=== PATIENT | female | born 1995 | race Caucasian/White ===

== ENCOUNTER 2021-03-19 14:33 | Outpatient (CLI) | payer BC, SELFPAY ==
[2021-03-19 18:35] LABS: Hematocrit 41.4 % (37.0-47.0); Hemoglobin 13.7 g/dL (12.0-15.0); Mean Corpuscular HGB Conc 33.1 g/dl (32-36); Mean Corpuscular Hemoglobin 28.5 pg (26-34); Mean Corpuscular Volume 86.3 fl (80-100); Mean Platelet Volume 10.7 fl (7.4-10.4); Platelet Count Result 233 k/mm3 (150-375); White Blood Count 13.6 K/mm3 (4.5-10.0)
[2021-03-19 18:50] LABS: Alanine Aminotransferase 16 U/L (4-35); Albumin Level 3.9 g/dL (3.5-5.1); Alkaline Phosphatase 77 U/L (38-126); Anion Gap 14 mmol/L (8-16); Aspartate Amino Transferase 24 U/L (14-36); Bilirubin,Total 0.4 mg/dL (0.2-1.3); Blood Urea Nitrogen 11 mg/dL (7-17); Calcium 9.6 mg/dL (8.4-10.2); Carbon Dioxide 21 mmol/L (22-30); Chloride 103 mmol/L (98-107); Cholesterol 179 mg/dL (0-200); Estimated Glomerular Filt Rate > 60; Glucose 173 mg/dL (65-110); HDL Direct 56 mg/dL; Iron 61 ug/dL (37-170); Potassium 3.9 mmol/L (3.4-5.0); Sodium 138 mmol/L (137-145); Triglycerides 171 mg/dL (<150)
[2021-03-19 18:52] LABS: Hemoglobin A1C 6.2 % (<5.7)
[2021-03-19 18:59] LABS: Percent Iron Saturation 17 % (20-50)
[2021-03-19 19:01] LABS: LDL Cholesterol Direct 104 mg/dL
[2021-03-19 19:08] LABS: Vitamin D 25 Hydroxy 38.7 ng/mL
== END 2021-03-19 14:34 | disposition home or self-care (01) ==
PROVIDERS: PCP Family Medicine; Visit Provider Family Medicine
DX: R79.89 Other specified abnormal findings of blood chemistry (principal); E28.2 Polycystic ovarian syndrome; N32.81 Overactive bladder; R20.0 Anesthesia of skin; R20.2 Paresthesia of skin; R73.9 Hyperglycemia, unspecified
CPT/HCPCS: 36415; 80053; 80061; 82306; 83036; 83540; 83550; 85027

== ENCOUNTER 2021-05-27 08:23 | Emergency (ER) | payer BC, SELFPAY ==
[2021-05-27] VITALS (14 sets, daily range): BP systolic 129–146; BP diastolic 82–90; PULSE 106; RESP 15; TEMP 36.7; O2SAT 97–100
--- NOTE | ~2021-05-27 | CT_ITS ---
EXAMINATION: CT abdomen pelvis w con DATE: 05/27/2021 10:37 INDICATION: Right upper quadrant pain. Vaginal bleeding. TECHNIQUE: Computed tomography (CT) of the abdomen and pelvis was performed with 100 cc Omnipaque 350 intravenous contrast. The dose-length product was 1189.87 mGy-cm. Automated exposure control and ite rative reconstruction technique were employed. COMPARISON: None. FINDINGS: Lung bases are unremarkable. Heart size normal. No significant pleural or pericardial effus ion. No significant vascular abnormality. No lymphadenopathy. Fatty infiltration of the liver. Calcified granuloma of the spleen. The pancreas, adrenal glands and kidneys are unremarkable. Gallbladder is present. No acute osseous abnormality. No abnormal pelvic ma sses or fluid collections. There are are nonenlarged retroperitoneal lymph nodes, likely reactive. IMPRESSION: 1. No acute abdominal abnormality. 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
--- NOTE | ~2021-05-27 | US_ITS ---
EXAMINATION: US pelvic complete w TV DATE: 05/27/2021 11:55 INDICATION: Abnormal uterine bleeding Comparison:CT dated 05/27/2021 TECHNIQUE: Multiple transabdominal and endovaginal sonographic images of the pelvis performed. FINDINGS: The uterus measures 5.9 x 2.6 x 3.3 cm. The endometrial complex measures 4.5 mm. The right ovary measures 3.2 x 2.9 x 2.1 cm and the left ovary measures 2.9 x 2.5 x 2.5 cm. There ar e small follicles in each ovary. Normal doppler signal in both ovaries. There is no free fluid in the pelvis. There are no abnormal masses seen on either side. IMPRESSION: 1. Unremarkable pelvic ultrasound. Reviewed, dictated and finalized at location A. 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
[2021-05-27 09:03] LABS: Basophils Absolute Auto 0.1 K/mm3 (0.0-0.1); Basophils Percent Auto 0.7 % (0.2-1.2); Eosinophils Absolute Auto 0.4 K/mm3 (0-0.3); Eosinophils Percent Auto 3.2 % (0-4.4); Hematocrit 41.5 % (37.0-47.0); Hemoglobin 13.5 g/dL (12.0-15.0); Immature Granulocyte Absolute 0.04 K/mm3 (0.00-0.031); Immature Granulocyte Percent A 0.4 % (0-0.5); Lymphocytes Absolute Auto 2.83 K/mm3 (0.9-3.2); Mean Corpuscular HGB Conc 32.5 g/dl (32-36); Mean Corpuscular Hemoglobin 28.1 pg (26-34); Mean Corpuscular Volume 86.3 fl (80-100); Mean Platelet Volume 10.9 fl (7.4-10.4); Monocytes Absolute Auto 0.9 K/mm3 (0.1-0.6); Neutrophils Absolute Auto 7.1 K/mm3 (1.3-6.7); Neutrophils Percent Auto 62.7 % (45.5-73.1); Platelet Count Result 293 k/mm3 (150-375); Red Blood Count 4.81 M/mm3 (4.2-5.4); Red Cell Distribution Width 13.2 % (11.5-14.5); White Blood Count 11.3 K/mm3 (4.5-10.0)
[2021-05-27 09:13] LABS: Alanine Aminotransferase 13 U/L (4-35); Albumin Level 3.9 g/dL (3.5-5.1); Alkaline Phosphatase 77 U/L (38-126); Anion Gap 6 mmol/L (8-16); Aspartate Amino Transferase 18 U/L (14-36); Bilirubin,Total 0.5 mg/dL (0.2-1.3); Blood Urea Nitrogen 10 mg/dL (7-17); Carbon Dioxide 22 mmol/L (22-30); Chloride 108 mmol/L (98-107); Estimated Glomerular Filt Rate > 60; Glucose 137 mg/dL (65-110); Lipase 58 U/L (23-300); Potassium 4.1 mmol/L (3.4-5.0); Sodium 136 mmol/L (137-145)
[2021-05-27 09:30] LABS: Add Urine Microscopic? YES; Appearance Urine Clear (Clear); Bacteria Urine Trace /hpf; Bilirubin Urine Negative (Negative); Blood Urine 2+ (Negative); Color Urine Yellow (Yellow); Glucose Urine UA Negative (Negative); Ketones Urine Negative (Negative); Leukocyte Esterase Ur Negative LEU/UL (Negative); Mucus Urine Few /lpf; Nitrate Urine Negative (Negative); Protein Urine Negative (Negative); RBC Urine 0-2 /hpf (0-2); Specific Grav Ur 1.025 (1.001-1.035); Squamous Epithelial Cell Urine Moderate /hpf (Few); Urobilinogen Urine Negative mg/dL (<2.0); WBC Urine 0-3 /hpf
--- NOTE | 2021-05-27 10:31 | ED.ABDPAIN ---
HPI - Abdominal Pain General Chief Complaint: Abdominal Pain Stated Complaint: ABD/BACK PAIN, VAG BLEEDING [id number] Time Seen by Provider: 05/27/21 10:04 Source: patient Mode of arrival: ambulatory Limitations: no limitations History of Present Illness HPI narrative: This is a 26-year-old female that presents to the emergency department for right upper quadrant pain noted over the last 3 days. Reports the pain was intermittent, since last night has become more constant. She had fish and Wolof fries last night for dinner. Reports nausea. Also reports she has had some abnormal uterine bleeding. Reports she has had spotting ongoing for the last month. She is currently on control. Denies vomiting, dysuria, or diarrhea. Related Data Home Medications Medication Instructions Recorded Confirmed bupropion HCl 300 mg 24 hr tablet, 300 mg PO QAM 03/16/19 03/19/21 extended release cetirizine 10 mg tablet 10 mg PO DAILY 03/16/19 03/19/21 dextroamphetamine-amphetamine ER 37.5 mg PO DAILY 03/19/21 03/19/21 37.5 mg capsule, 3 bead, ext rel 24hr Allergies Allergy/AdvReac Type Severity Reaction Status Date / Time ketamine Allergy Mild Unknown Verified 03/19/21 13:30 amoxicillin Allergy Unknown hives Verified 03/19/21 13:30 clarithromycin Allergy Unknown hives Verified 03/19/21 13:30 clindamycin Allergy Unknown hives Verified 03/19/21 13:30 Review of Systems Review of Systems: CONSTITUTIONAL: Denies fever GASTROINTESTINAL: Reports abdominal pain, nausea. Denies vomiting, or diarrhea. GENITOURINARY: Denies dysuria or hematuria. All systems reviewed & are unremarkable except as noted in HPI and below PMFSH Past Medical History Medical History (Updated 05/27/21 @ 14:20 by Ana Maria Martin PA-C) Fatigue Hypersomnia MDD (major depressive disorder) PCOS (polycystic ovarian syndrome) Social History Social History (Updated 03/19/21 @ 13:37 by Kelsy Villa [facility]) Social History: single Smoking status: Never smoker Second hand tobacco smoke exposure: No Alcohol intake: current Alcohol use details: Once a month pt stated that she drinks alcohol. 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 HEAD: Normocephalic, atraumatic. EYES: EOMI. CHEST: Clear to auscultation. No respiratory distress. No wheezes rales or rhonchi HEART: Regular rate and rhythm. No murmur heard. Normal peripheral pulses. ABDOMEN: Soft, nondistended, normal active bowel sounds. Tender to palpation in the right upper quadrant, without guarding EXTREMITIES: Normal range of motion. No edema. SKIN: Warm, dry, no rash. NEURO: No focal deficits. Alert and oriented x3. PSYCH: Normal mood and affect Course Vital Signs Vital signs: Vital Signs Pulse Rate 106 H 05/27/21 08:37 Respiratory Rate 15 05/27/21 08:37 Blood Pressure 146/90 H 05/27/21 08:37 Pulse Oximetry 100 05/27/21 08:37 Pulse Rate 106 H 05/27/21 08:37 Respiratory Rate 15 05/27/21 08:37 Blood Pressure 146/90 H 05/27/21 08:37 Pulse Oximetry 100 05/27/21 08:37 MDM - Abdominal Pain MDM Narrative Medical decision making narrative: Patient presents to the ER for abdominal pain present over the last couple of days. Also reporting some abnormal uterine bleeding. Patient is afebrile and nontoxic-appearing. Mildly tachycardic upon arrival, this normalized with fluid administration. CBC with mild leukocytosis to 11.3. Metabolic panel without concerning findings. Lipase is normal. UA without evidence of infection. Bedside test is negative. CT scan of the abdomen and pelvis is without acute findings. Pelvic ultrasound is also without concer
[2021-05-27] MEDS: ONDANSETRON INJ 4 MG/2 ML VIAL IV PUSH (10:43)
[2021-05-27] MEDS: SODIUM CHLORIDE 0.9% IV 500 ML 999 ML IV CONT (10:43)
== END 2021-05-27 14:50 | disposition home or self-care (01) ==
PROVIDERS: Emergency Provider Emergency Medicine; PCP Family Medicine
DX: N93.9 Abnormal uterine and vaginal bleeding, unspecified (principal); R10.11 Right upper quadrant pain; E28.2 Polycystic ovarian syndrome; G47.10 Hypersomnia, unspecified; F32.9 Major depressive disorder, single episode, unspecified
CPT/HCPCS: 36415; 74177; 76830; 76856; 80053; 81001; 81025; 83690; 85025; 96361; 96374; 96375; 99284; J0131; J2405; J7040; Q9967

== ENCOUNTER 2021-05-30 10:04 | Outpatient (CLI) | payer BC, SELFPAY ==
--- NOTE | ~2021-05-30 | XR_ITS ---
EXAMINATION: XR abdomen obstructive series DATE: 05/30/2021 10:23 INDICATION: Abdominal distention (gaseous). TECHNIQUE: Upright and supine views of abdomen on 3 radiographs were obtained. COMPARISON: CT abdomen and pelvis 05/27/2021 FINDINGS: There are no dilated loops of bowel. There is a small volume of stool in the colon. No free intraperitoneal gas. There are phleboliths in the pelvis. IMPRESSION: 1. Normal bowel gas pattern. Reviewed, dictated and finalized at location A. 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
[2021-05-30 19:20] LABS: CRP 2.9 mg/dL (<1.0)
[2021-05-30 19:52] LABS: Erythrocyte Sedimentation Rate 5 mm/hr (0-20)
== END 2021-05-30 10:05 | disposition home or self-care (01) ==
LOC: ANHBWCLAB 10:06
PROVIDERS: PCP Family Medicine; Visit Provider Family Medicine
DX: R14.0 Abdominal distension (gaseous) (principal)
CPT/HCPCS: 36415; 74019; 85652; 86140